=== PATIENT | male | born 1955 | race Caucasian/White ===

== ENCOUNTER 2021-09-30 15:44 | Observation (INO) | payer OTHER, SELFPAY ==
[2021-09-30] VITALS (73 sets, daily range): BP systolic 61–134; BP diastolic 35–86; PULSE 91–139; RESP 14–28; TEMP 31–37.7; O2SAT 74–100
--- NOTE | 2021-09-30 | PATH_ITS ---
[facility] Accession Number: [id number] No. of containers..01 Tissue . 01 Material submitted: . finger - RIGHT INDEX FINGER . 01 Diagnosis: Right Index Finger, Amputation: Skin and subcutaneous tissue with ulcer, necrosis, mixed inflammation, and bacterial organisms. Underlying bone with necrosis, marrow fibrosis, neutrophilic inflammation, and bacterial organisms, consistent with osteomyelitis. Necrosis, mixed inflammation, and bacterial organisms are present at the sampled skin and subcutaneous tissue margin. Marrow neutrophilic inflammation is present at the en face bone articular margin. No evidence of malignancy identified in sections examined. MRV 10/05/2021 1502 Local . 01 Electronically signed: . Geoffrey Pate MD, Dermatopathologist NPI- [id number] . 01 Gross description: . The specimen is received in formalin, labeled with the patient's name, and right index finger is an amputated finger, which measures 8.0 x 2.0 x 2.0 cm. The skin is gifford-white and is marked by an ulcer present proximal to the nail bed measuring 1.7 x 1.0 cm. There is an area of black discoloration present adjacent to the ulcer, which measures 1.0 x 0.5 cm. There is denuded skin and possible ulcer present underneath the nail bed on the dorsal aspect of the finger, and that measures 1.7 x 1.4 cm. Focally, the skin appears slightly discolored in other areas. The first described ulcer and the black discoloration is present 2.5 cm from the closest skin and underlying soft tissue resection margin, and 6.0 cm from the bone resection margin. The second described ulcer is present 2.5 cm from the skin and soft tissue margin on the dorsal aspect and 6.5 cm from articular bone margin. Also present is discoloration involving the skin and soft tissue resection margin on the ventral aspect and spreading over an area of 3.5 x 1.0 cm. The skin here appears dark, dusky. The exposed soft tissue overlying the bone is red-brown and dark. The articular surface of the bone resection margin is gifford-white and smooth. Sectioning through the first ulcer reveals softened underlying possible bone/cartilage. The tissue appears necrotic. The underlying bone is completely softened. Sections are submitted following decalcification of the bone. . A1 - Articular surface, en face section of the bone, inked green. A2 - Discolored and dusky skin shave resection margin on the ventral aspect. A3 - Viable appearing skin and soft tissue resection margin, shave section from the dorsal aspect. A4-A5 - Skin underlying soft tissue and underlying softened bone at the area of the first described ulcer and adjacent black discoloration cross-sections. A6 - Cross-section showing the second ulcer on the dorsal aspect underneath the nail bed. . The bone sections have been submitted following decalcification. ([id number] ) /MRV 10/04/2021 122 Local . 01 Pathologist provided ICD-10: M86.241 . 01 CPT . 660525, [id number] Specimen Comment: A courtesy copy of this report has been sent to [facility] Performed at: 01 [facility] [address] [place] [address], [place], [place] [id number] MD Hemal Blanchard MD Phone: [phone]
--- NOTE | 2021-09-30 15:55 | DI.RAD.S_ITS ---
PROCEDURE: XR CHEST 1V INDICATIONS: found on ground, hypothermia, infected hand TECHNIQUE: One view of the chest was acquired. COMPARISON: None. FINDINGS: Surgical changes and devices: None. Lungs and pleura: Lungs are clear. No pleural effusions or pneumothorax. Mediastinum: Mediastinal contours appear normal. Heart size is normal. Bones and chest wall: No suspicious bony lesions. Overlying soft tissues appear unremarkable. IMPRESSION: No evidence acute pulmonary process. Dictated by: Fred Gill M.D. on 09/30/2021 at 16:08 Approved by: Fred Gill M.D. on 09/30/2021 at 16:09
--- NOTE | 2021-09-30 15:55 | DI.RAD.S_ITS ---
PROCEDURE: XR HAND RT MIN 3V INDICATIONS: infected hand TECHNIQUE: 3 views of the hand(s) acquired. COMPARISON: None. FINDINGS: Bones: Fusion hardware related to fusion of the 3rd metacarpal to the distal radius. No evidence of hardware failure or loosening. No fractures or dislocations. Carpal bones are normally aligned. No suspicious bony lesions. Soft tissues: No suspicious soft tissue calcifications. Extensive soft tissue swelling in the hand and extensive soft tissue gas. IMPRESSION: 1. There is definite concern for possible development of a compartment syndrome secondary to necrotizing fasciitis. There is clear diffuse edema and extensive soft tissue gas. Comment: Findings were discussed with Dr. Caballero on 09/30/2021 at 1607 hours [place] Standard Time. Dictated by: Fred Gill M.D. on 09/30/2021 at 16:05 Approved by: Fred Gill M.D. on 09/30/2021 at 16:08
--- NOTE | 2021-09-30 15:55 | ED.SEPSIS ---
HPI - Sepsis General Chief Complaint: Altered Mental Status Mode of arrival: EMS Source: patient and EMS Limitations: altered mental status Evaluation Narrative: This is a 66-year-old male who is brought as by EMS for being found down on the ground for possibly 2 days. He lives at home in the basement his mother went to check on him she lives upstairs she has not seen for 2 days. He was on the ground. He was cold and has what appears to be an infected hand. Patient was alert, hypotensive and hypothermic for EMS. Glucose read high in the field. Patient has a history of diabetes, COPD no other known medical issues. Patient has reported history of neck fashion her his right upper extremity with multiple healed incisions. Patient is alert but has some mild confusion he states he was in his bed. He complains of pain in his left shoulder were an IO was placed by EMS. He does not complain of pain elsewhere but states hand is infected. Patient denies other surgeries. He notes he has hospital but has confusion about other details. Patient denies any headache, no neck pain, no chest pain or shortness of breath. He denies any nausea or vomiting. He denies any issues with bowel movements or urination. He does note his hand is infected and does appear to be infected. He denies any allergies to medications. He denies tobacco, alcohol or illicit. Review of Systems Review of Systems ROS Unobtainable: Unobtainable due to mental status/LOC Exam Narrative Exam Narrative: GEN: Disheveled, ill-appearing male, alert and oriented does self, patient appears to be in moderate distress. Patient is cold to the touch. Bear Hugger placed in the emergency department. HEENT: Atraumatic, pupils are equal round reactive to light, extraocular movements are intact, nares are clear, TMs are clear with no fluid, there is no conjunctival pallor. Throat is clear without any exudates, erythema, tonsillar enlargement or uvular deviation, normal range of motion at neck. Dry mucous membranes. Nontender and C-spine. HEART: Tachycardic irregular rate and rhythm without murmur, clicks, rubs. Pulses are equal in lower extremities. Positive radial pulse some left upper extremity. Right upper extremity patient has palpable radial pulse but has significant changes the hand see below. LUNGS:Lungs clear to auscultation, no wheezes, rales, crackles, chest moves symmetrically, no tachypnea accessory muscle use. ABD:bowel sounds normal, nondistended, soft, non-tender, no guarding, rebound, rigidity, no masses noted, no hepatosplenomegaly :No CVA tenderness, normal male genitalia. MSCL: Non-tender, patient has an IO in the left shoulder which appears to be infusing appropriately with no swelling surrounding. Patient has full range of motion of left upper extremity and bilateral lower extremities. Patient has movement right upper extremity at the elbow, he can flex and extend his fingers but has significant swelling of the hand with ulceration over the thumb and fingers, significant deformity swelling of the and all 5 fingers but in particularly the 1st and 2nd finger with necrotic changes of the 2nd finger that are circumferential. Patient does have touch to light sensation over the thumb and 3rd finger. Unable to assess cap refill in the 2nd finger. There is a foul odor. With erythema over the dorsum of the hand tracking into the wrist. NEURO:CN 2-12 intact, sensation normal. Initial Vital Signs Initial Vital Signs: Vital Signs Temperature 87.8 F L 09/30/21 15:47 Pulse Rate 117 H 09/30/21 15:47 Respiratory Rate 28 H 09/30/21 15:47 Blood Pressure 72/47 L 09/30/21 15:47 Pulse Oximetry 95 09/30/21 15:47 Procedures Central Line Placement Right IJ: Time Out Performed: Yes Patient Placed on Monitor/Pulse Ox: Yes MD Prep: mask, gown and gloves Central Line Prep: Povidone-Iodine 1%, Chlorhexidine scrub and sterile drapes applied Local Anesthetic: lidocaine 1% Amount of anesthesia used (mL): 5 Ultrasound Used for Placement: Yes Central Line Lumen Inserted: triple Post Procedure: sutured in place (device secured.), good blood return, all ports aspirated, flushed, capped and sterile dressing applied Post Procedure X-Ray: tip of catheter in good position and no pneumothorax seen Patient Tolerated Procedure: Well Complications: none Scores GCS [place] coma scale eye opening: Spontaneous [place] coma scale verbal response: Confused [place] coma scale motor response: Obey commands [place] coma scale total score: 14 Course Orders Ordered: ED Orders 09/30/21 15:52 Urine Drug Screen, Rapid Stat 09/30/21 15:54 COVID19 -Nasal swab/Pre-Proc Stat Ictotest Urine Stat Urinalysis and Microscopic Stat Urine Culture Stat 09/30/21 15:55 XR chest 1V Stat XR hand RT min 3V Stat EKG-12 Lead Stat 09/30/21 15:57 CT cervical spine wo con Stat 09/30/21 16:00 Complete Blood Count AUTO DIFF Stat Comprehensive Metabolic Panel Stat ETOH [Ethanol (ETOH)] Stat Ketones (Beta-Hydroxybutyrate) Stat Lactate (Lactic Acid) Stat NT-proBNP (BNP-Adult 18+) Stat Partial Thromboplastin Time Stat Procalcitonin Stat Prothrombin Time INR Stat Troponin & CK Cardiac Panel Stat 09/30/21 16:05 CT head/brain wo con Stat 09/30/21 16:15 Blood Culture Stat 09/30/21 16:25 Arterial Blood Gas Stat 09/30/21 18:08 Chest [XR chest 1V] Stat 09/30/21 21:00 Basic Metabolic Panel Routine NOREPINEPHRINE BITARTRATE/D5W (Levophed) 4 mg in 250 mls @ 30 mls/hr IV TITRATE ARCHANA; Protocol Last Titration: 09/30/21 18:20 Dose: 6 mcg/min, 22.5 mls/hr Documented by: Admin: 09/30/21 17:20 Dose: 8 mcg/min, 30 mls/hr Documented by: ASHLYN INSULIN DRIP PREMIX (Myxredlin Drip Premix) 100 unit in 100 mls @ 6 mls/hr IV TITRATE ARCHANA; Protocol Last Titration: 09/30/21 20:14 Dose: 6 mls/hr, 6 mls/hr Documented by: POTASSIUM CHLORIDE IN WATER (Potassium Cl 10 Meq/100 Ml Rama) 10 meq in 100 mls @ 100 mls/hr IV Q1H ARCHANA Stop: 09/30/21 22:29 Last Titration: 09/30/21 20:14 Dose: Infused Documented by: Discontinued Medications Fentanyl (Fentanyl 100 Mcg/2 Ml Inj) 50 mcg IV NOW ONE Stop: 09/30/21 17:14 Last Admin: 09/30/21 17:20 Dose: 50 mcg Documented by: ASHLYN Lactated Ringer's (Lactated Ringers) 2,177.25 mls @ 725.75 mls/hr 30 ml/kg infuse over 3 hr (2177.25 ml) IV NOW ONE Stop: 09/30/21 18:56 Last Infusion: 09/30/21 18:28 Dose: 0 mls/hr Documented by: Admin: 09/30/21 16:06 Dose: 725.75 mls/hr Documented by: TRE Vancomycin HCl/Dextrose (Vancomycin) 2,000 mg in 400 mls @ 200 mls/hr IV NOW ONE Stop: 09/30/21 17:57 Last Admin: 09/30/21 16:30 Dose: 200 mls/hr Documented by: ASHLYN Piperacillin Sod/Tazobactam (Sod 4.5 gm/ Sodium Chloride) 100 mls @ 200 mls/hr IV NOW ONE Stop: 09/30/21 15:59 Last Infusion: 09/30/21 16:31 Dose: 0 mls/hr Documented by: Infusion: 09/30/21 16:30 Dose: 0 mls/hr Documented by: Admin: 09/30/21 16:11 Dose: 200 mls/hr Documented by: TRE INSULIN DRIP PREMIX (Myxredlin Drip Premix) 100 unit in 100 mls @ 6 mls/hr IV TITRATE ARCHANA; Protocol Last Admin: 09/30/21 19:24 Dose: Not Given Documented by: Lactated Ringer's (Lactated Ringers) 1,000 mls @ 1,000 mls/hr IV BOLUS ONE Stop: 09/30/21 19:53 Last Titration: 09/30/21 20:15 Dose: Infused Documented by: Morphine Sulfate (Morphine 4 Mg/Ml Inj) 4 mg IV NOW ONE Stop: 09/30/21 18:24 Last Admin: 09/30/21 18:30 Dose: 4 mg Documented by: ASHLYN Consultations Consultation #1: Dr. Reyna, orthopedic surgery. Unstable patient with neck fast. She is willing to take patient to OR but like a stalk to [address] as patients often need transfer. Consultation #2: Spoke with Dr. Márquez hand surgery at [facility]. Ask that the patient be taken to the OR 1st locally for source control, then recontact for transfer they think patient is appropriate for transfer but feel that he would be better stabilized by going to the OR 1st. We reviewed that patient appears to have necrotizing fasciitis of the right hand with gangrene of the 2nd digit, septic shock with hypotension, on pressors with hypothermia, DKA as well as acute kidney injury. Consultation #3: Dr. Reyna, orthopedic surgery. Will come in and take patient to the OR. Calling in the OR crew and ask us to talk to the hospitalist as patient may need some management post surgery while awaiting transfer. Dr. Reyna did see patient here in the department and obtained consent from patient and parents. Additional Consultation(s): Dr. Leon, hospitalist. Aware of patient reviewed that patient has neck fascia of his right hand hypothermia after being on the floor with septic shock with hypotension, DKA and acute kidney injury. Patient has received fluids, pressors, antibiotics as on insulin drip along with potassium replacement. Dr. Hatch, Anesthesia was in the department to evaluate patient. Vital Signs Vital signs: Vital Signs - 8 hr 09/30/21 15:47 09/30/21 15:49 09/30/21 15:56 Temperature 87.8 F L 88.3 F L Pulse Rate 117 H 118 H 113 H Respiratory Rate 28 H 26 H 28 H Blood Pressure 72/47 L 72/47 L Pulse Oximetry 95 94 99 09/30/21 16:00 09/30/21 16:06 09/30/21 16:11 Temperature 88.5 F L 88.7 F L 88.7 F L Pulse Rate 120 H 120 H 119 H Respiratory Rate 28 H 28 H 28 H Blood Pressure 71/44 L 71/54 L Pulse Oximetry 99 99 94 09/30/21 16:15 09/30/21 16:20 09/30/21 16:25 Temperature 88.7 F L 88.7 F L 88.7 F L Pulse Rate 117 H 123 H 110 H Respiratory Rate 28 H 27 H 26 H Blood Pressure 72/48 L 70/51 L 64/49 L Pulse Oximetry 99 99 100 09/30/21 16:30 09/30/21 16:35 09/30/21 16:40 Temperature 88.9 F L 88.9 F L 89.2 F L Pulse Rate 119 H 118 H 125 H Respiratory Rate 27 H 22 24 Blood Pressure 73/35 L 63/44 L Pulse Oximetry 97 97 98 09/30/21 16:45 09/30/21 16:50 09/30/21 16:52 Temperature 89.1 F L 89.2 F L 89.2 F L Pulse Rate 114 H 118 H 120 H Respiratory Rate 21 22 26 H Blood Pressure 69/53 L 66/45 L 61/46 L Pulse Oximetry 98 96 95 09/30/21 16:55 09/30/21 16:56 09/30/21 16:57 Temperature 89.2 F L 89.2 F L 89.4 F L Pulse Rate 118 H 120 H 117 H Respiratory Rate 20 23 22 Blood Pressure 70/51 L 84/52 L Pulse Oximetry 93 93 96 09/30/21 17:00 09/30/21 17:03 09/30/21 17:05 Temperature 89.6 F L 89.4 F L 89.6 F L Pulse Rate 116 H 121 H 117 H Respiratory Rate 21 25 H 22 Blood Pressure 74/51 L Pulse Oximetry 98 98 95 09/30/21 17:06 09/30/21 17:09 09/30/21 17:10 Temperature 89.6 F L 89.8 F L 90.1 F L Pulse Rate 118 H 118 H 115 H Respiratory Rate 21 22 22 Blood Pressure 71/51 L 69/52 L Pulse Oximetry 82 L 87 L 82 L 09/30/21 17:12 09/30/21 17:15 09/30/21 17:18 Temperature 89.8 F L 90.0 F L 90.1 F L Pulse Rate 118 H 113 H 114 H Respiratory Rate 26 H 20 21 Blood Pressure 72/52 L 73/55 L 87/52 L Pulse Oximetry 98 98 97 09/30/21 17:20 09/30/21 17:21 09/30/21 17:24 Temperature 90.3 F L 90.5 F L 90.3 F L Pulse Rate 120 H 123 H 122 H Respiratory Rate 18 22 24 Blood Pressure 78/53 L 73/51 L Pulse Oximetry 97 95 98 09/30/21 17:25 09/30/21 17:27 09/30/21 17:30 Temperature 90.7 F L 90.5 F L 90.7 F L Pulse Rate 122 H 120 H 121 H Respiratory Rate 14 22 21 Blood Pressure 90/67 119/73 Pulse Oximetry 98 97 99 09/30/21 17:33 09/30/21 17:35 09/30/21 17:36 Temperature 90.9 F L 91.0 F L 91.0 F L Pulse Rate 123 H 127 H 91 H Respiratory Rate 22 21 21 Blood Pressure 134/75 129/70 Pulse Oximetry 99 98 98 09/30/21 17:39 09/30/21 17:40 09/30/21 17:42 Temperature 91.2 F L 91.4 F L 91.6 F L Pulse Rate 130 H 125 H 133 H Respiratory Rate 21 21 21 Blood Pressure 123/73 126/86 Pulse Oximetry 98 98 99 09/30/21 17:45 09/30/21 17:48 09/30/21 17:50 Temperature 92.3 F L 92.1 F L 92.1 F L Pulse Rate 132 H 132 H 134 H Respiratory Rate 18 20 20 Blood Pressure 119/80 124/77 Pulse Oximetry 97 97 98 09/30/21 17:51 09/30/21 17:54 09/30/21 17:55 Temperature 92.3 F L 92.5 F L 92.5 F L Pulse Rate 123 H 130 H 129 H Respiratory Rate 19 17 21 Blood Pressure 124/76 130/77 Pulse Oximetry 98 89 L 89 L 09/30/21 17:57 09/30/21 18:00 09/30/21 18:05 Temperature 92.8 F L 92.8 F L 93.2 F L Pulse Rate 130 H 131 H 134 H Respiratory Rate 19 21 22 Blood Pressure 120/82 120/78 Pulse Oximetry 97 98 96 09/30/21 18:07 09/30/21 18:10 09/30/21 18:15 Temperature 93.4 F L 93.6 F L 93.9 F L Pulse Rate 132 H 131 H 128 H Respiratory Rate 23 21 20 Blood Pressure 124/68 132/67 Pulse Oximetry 74 L 97 98 09/30/21 18:20 09/30/21 18:25 09/30/21 18:30 Temperature 94.1 F L 94.5 F L 94.6 F L Pulse Rate 133 H 135 H 139 H Respiratory Rate 22 21 20 Blood Pressure 106/61 Pulse Oximetry 98 100 91 09/30/21 18:35 09/30/21 18:50 09/30/21 18:51 Temperature 95.0 F L Pulse Rate 134 H 99 H 98 H Respiratory Rate 23 21 20 Blood Pressure 85/54 L Pulse Oximetry 94 09/30/21 18:52 09/30/21 18:55 09/30/21 19:00 Temperature 95.7 F L 95.9 F L 96.3 F L Pulse Rate 98 H 98 H 99 H Respiratory Rate 19 21 22 Blood Pressure 89/56 L Pulse Oximetry 93 95 09/30/21 19:01 09/30/21 19:05 09/30/21 19:10 Temperature 96.3 F L 96.4 F L 96.6 F L Pulse Rate 100 H 98 H 97 H Respiratory Rate 21 21 20 Blood Pressure 79/51 L Pulse Oximetry 96 95 98 09/30/21 19:15 09/30/21 19:20 09/30/21 19:25 Temperature 96.8 F L 97.0 F L 97.2 F L Pulse Rate 97 H 97 H 98 H Respiratory Rate 20 21 22 Blood Pressure 94/64 Pulse Oximetry 98 98 96 Sepsis Guideline Criteria Treatment Initiated Antibiotics:: IV antimicrobials will be initiated as soon as possible after recognition of sepsis state and within one hour for both sepsis and septic shock. [facility] - Sepsis Lab Data Result diagrams: 09/30/21 16:00 09/30/21 16:00 Labs: Lab Results 09/30/21 09/30/21 09/30/21 Range/Units 15:52 15:54 15:54 WBC (4.5-11.0) X10^3/uL RBC (4.5-5.9) X10^6/uL Hgb (13.5-17.5) g/dL Hct (41-53) % MCV (80-100) fL MCH (26-34) PG MCHC (30-36) % RDW (11.6-14.8) % Plt Count (150-400) X10^3/uL Neut % (Auto) Lymph % (Auto) [place] % (Auto) Eos % (Auto) Baso % (Auto) Lymph # (Auto) [place] # (Auto) Baso # (Auto) Total Counted Seg Neutrophils % (38-70) % Band Neutrophils % (3-7) % Lymphocytes % (Manual) (25-45) % Monocytes % (Manual) (2-11) % Metamyelocytes % (-0) % Neutrophils # (Manual) (0085-7031) /uL RBC Morphology Anisocytosis Val[place] Cells PT (10.1-12.7) SECONDS INR (0.9-1.3) APTT (26.4-36.2) SECONDS ABG pH (7.35-7.45) ABG pCO2 (35-45) mmHg ABG pO2 (80-100) mmHg ABG HCO3 (22-26) mmol/L ABG Total CO2 (21-31) mmol/L ABG O2 Saturation (95-100) % ABG Base Excess (-2-2) mmol/L FiO2 Sodium (137-145) mmol/L Potassium (3.4-5.1) mmol/L Chloride (98-107) mmol/L Carbon Dioxide (22-32) mmol/L BUN (9-20) mg/dL Creatinine (0.66-1.25) mg/dL Estimated GFR (>60) mL/min BUN/Creatinine Ratio (6-22) Glucose (80-110) mg/dL Lactate (0.7-2.1) mmol/L Calcium (8.4-10.2) mg/dL Total Bilirubin (0.2-1.3) mg/dL AST (17-59) IU/L ALT (<50) IU/L Alkaline Phosphatase (38-126) U/L Total Creatine Kinase (55-170) U/L CK-MB (CK-2) (<2.37) ng/mL CK-MB (CK-2) Rel Index (1.5-5.0) % Troponin I (0.01-0.034) ng/mL NT-Pro-B Natriuret Pep (<125) pg/mL Total Protein (6.3-8.2) g/dL Albumin (3.5-5.0) g/dL Globulin (1.7-4.1) g/dL Albumin/Globulin Ratio (1.0-2.8) Procalcitonin (<0.5) ng/mL Urine Color Yellow Urine Appearance Clear Urine pH 6.0 (4.5-8.0) Ur Specific [place] 1.010 (1.000-1.035) Urine Protein 1+ H (Negative) Urine Glucose (UA) 3+ H (Negative) g/dL Urine Ketones 2+ H (NEGATIVE) Urine Occult Blood 2+ H (Negative) Urine Nitrate Negative (Negative) Urine Bilirubin 2+ H (NEGATIVE) Ur Bilirubin Confirm Positive H (Negative) Urine Urobilinogen 0.2 (0.2) E.U./dL Ur Leukocyte Esterase Negative (NEGATIVE) Urine RBC None seen (0-5/HPF) Urine WBC 5-10/hpf H (0-5/HPF) Amorphous Sediment 1+ Urine Bacteria Few (2-10) H (None) Ur Culture Indicated? Specimen cultured U Opiates 300ng/mL cut Negative (Negative) Ur Oxycodone Screen Positive H (Negative) Urine Methadone Screen Negative (Negative) Ur Barbiturates Screen Negative (Negative) U Tricyclic Antidepress Negative (Negative) Ur Phencyclidine Scrn Negative (Negative) Ur Amphetamines Screen Negative (Negative) U Methamphetamines Scrn Negative (Negative) Ur MDMA Scrn (Ecstasy) Negative (Negative) U Benzodiazepines Scrn Negative (Negative) Urine Cocaine Screen Negative (Negative) U Marijuana (THC) Screen Negative (Negative) Ethyl Alcohol ( - 10) mg/dL Ketones (<0.27) mmol/L SARS-CoV-2 (PCR) Negative (Negative) 09/30/21 09/30/21 09/30/21 Range/Units 16:00 16:00 16:00 WBC 21.8 H (4.5-11.0) X10^3/uL RBC 5.86 (4.5-5.9) X10^6/uL Hgb 17.6 H (13.5-17.5) g/dL Hct 54.8 H (41-53) % MCV 93.6 (80-100) fL MCH 30.1 (26-34) PG MCHC 32.2 (30-36) % RDW 14.4 (11.6-14.8) % Plt Count 319 (150-400) X10^3/uL Neut % (Auto) Not Reportable Lymph % (Auto) Not Reportable [place] % (Auto) Not Reportable Eos % (Auto) Not Reportable Baso % (Auto) Not Reportable Lymph # (Auto) Not Reportable [place] # (Auto) Not Reportable Baso # (Auto) Not Reportable Total Counted 100 Seg Neutrophils % 78.0 H (38-70) % Band Neutrophils % 11.0 H (3-7) % Lymphocytes % (Manual) 1.0 L (25-45) % Monocytes % (Manual) 8.0 (2-11) % Metamyelocytes % 2.0 H (-0) % Neutrophils # (Manual) 45878 H (3411-1431) /uL RBC Morphology See below Anisocytosis 1+ H Hancock Cells 2+ H PT 13.1 H (10.1-12.7) SECONDS INR 1.2 (0.9-1.3) APTT (26.4-36.2) SECONDS ABG pH (7.35-7.45) ABG pCO2 (35-45) mmHg ABG pO2 (80-100) mmHg ABG HCO3 (22-26) mmol/L ABG Total CO2 (21-31) mmol/L ABG O2 Saturation (95-100) % ABG Base Excess (-2-2) mmol/L FiO2 Sodium 130 L (137-145) mmol/L Potassium 3.4 (3.4-5.1) mmol/L Chloride 92 L (98-107) mmol/L Carbon Dioxide 11 L (22-32) mmol/L BUN 44 H (9-20) mg/dL Creatinine 2.18 H (0.66-1.25) mg/dL Estimated GFR 30.6 L (>60) mL/min BUN/Creatinine Ratio 20.2 (6-22) Glucose 607 H* (80-110) mg/dL Lactate (0.7-2.1) mmol/L Calcium 10.0 (8.4-10.2) mg/dL Total Bilirubin 0.9 (0.2-1.3) mg/dL AST 78 H (17-59) IU/L ALT 28 (<50) IU/L Alkaline Phosphatase 135 H (38-126) U/L Total Creatine Kinase 3262 H (55-170) U/L CK-MB (CK-2) 31.90 H (<2.37) ng/mL CK-MB (CK-2) Rel Index 1.0 L (1.5-5.0) % Troponin I 0.022 (0.01-0.034) ng/mL NT-Pro-B Natriuret Pep 3580 H (<125) pg/mL Total Protein 7.3 (6.3-8.2) g/dL Albumin 3.6 (3.5-5.0) g/dL Globulin 3.7 (1.7-4.1) g/dL Albumin/Globulin Ratio 1.0 (1.0-2.8) Procalcitonin 30.6 H (<0.5) ng/mL Urine Color Urine Appearance Urine pH (4.5-8.0) Ur Specific [place] (1.000-1.035) Urine Protein (Negative) Urine Glucose (UA) (Negative) g/dL Urine Ketones (NEGATIVE) Urine Occult Blood (Negative) Urine Nitrate (Negative) Urine Bilirubin (NEGATIVE) Ur Bilirubin Confirm (Negative) Urine Urobilinogen (0.2) E.U./dL Ur Leukocyte Esterase (NEGATIVE) Urine RBC (0-5/HPF) Urine WBC (0-5/HPF) Amorphous Sediment Urine Bacteria (None) Ur Culture Indicated? U Opiates 300ng/mL cut (Negative) Ur Oxycodone Screen (Negative) Urine Methadone Screen (Negative) Ur Barbiturates Screen (Negative) U Tricyclic Antidepress (Negative) Ur Phencyclidine Scrn (Negative) Ur Amphetamines Screen (Negative) U Methamphetamines Scrn (Negative) Ur MDMA Scrn (Ecstasy) (Negative) U Benzodiazepines Scrn (Negative) Urine Cocaine Screen (Negative) U Marijuana (THC) Screen (Negative) Ethyl Alcohol ( - 10) mg/dL Ketones (<0.27) mmol/L SARS-CoV-2 (PCR) (Negative) 09/30/21 09/30/21 09/30/21 Range/Units 16:00 16:00 16:00 WBC (4.5-11.0) X10^3/uL RBC (4.5-5.9) X10^6/uL Hgb (13.5-17.5) g/dL Hct (41-53) % MCV (80-100) fL MCH (26-34) PG MCHC (30-36) % RDW (11.6-14.8) % Plt Count (150-400) X10^3/uL Neut % (Auto) Lymph % (Auto) [place] % (Auto) Eos % (Auto) Baso % (Auto) Lymph # (Auto) [place] # (Auto) Baso # (Auto) Total Counted Seg Neutrophils % (38-70) % Band Neutrophils % (3-7) % Lymphocytes % (Manual) (25-45) % Monocytes % (Manual) (2-11) % Metamyelocytes % (-0) % Neutrophils # (Manual) (6884-4520) /uL RBC Morphology Anisocytosis Hancock Cells PT (10.1-12.7) SECONDS INR (0.9-1.3) APTT 37 H (26.4-36.2) SECONDS ABG pH (7.35-7.45) ABG pCO2 (35-45) mmHg ABG pO2 (80-100) mmHg ABG HCO3 (22-26) mmol/L ABG Total CO2 (21-31) mmol/L ABG O2 Saturation (95-100) % ABG Base Excess (-2-2) mmol/L FiO2 Sodium (137-145) mmol/L Potassium (3.4-5.1) mmol/L Chloride (98-107) mmol/L Carbon Dioxide (22-32) mmol/L BUN (9-20) mg/dL Creatinine (0.66-1.25) mg/dL Estimated GFR (>60) mL/min BUN/Creatinine Ratio (6-22) Glucose (80-110) mg/dL Lactate 4.0 H (0.7-2.1) mmol/L Calcium (8.4-10.2) mg/dL Total Bilirubin (0.2-1.3) mg/dL AST (17-59) IU/L ALT (<50) IU/L Alkaline Phosphatase (38-126) U/L Total Creatine Kinase (55-170) U/L CK-MB (CK-2) (<2.37) ng/mL CK-MB (CK-2) Rel Index (1.5-5.0) % Troponin I (0.01-0.034) ng/mL NT-Pro-B Natriuret Pep (<125) pg/mL Total Protein (6.3-8.2) g/dL Albumin (3.5-5.0) g/dL Globulin (1.7-4.1) g/dL Albumin/Globulin Ratio (1.0-2.8) Procalcitonin (<0.5) ng/mL Urine Color Urine Appearance Urine pH (4.5-8.0) Ur Specific [place] (1.000-1.035) Urine Protein (Negative) Urine Glucose (UA) (Negative) g/dL Urine Ketones (NEGATIVE) Urine Occult Blood (Negative) Urine Nitrate (Negative) Urine Bilirubin (NEGATIVE) Ur Bilirubin Confirm (Negative) Urine Urobilinogen (0.2) E.U./dL Ur Leukocyte Esterase (NEGATIVE) Urine RBC (0-5/HPF) Urine WBC (0-5/HPF) Amorphous Sediment Urine Bacteria (None) Ur Culture Indicated? U Opiates 300ng/mL cut (Negative) Ur Oxycodone Screen (Negative) Urine Methadone Screen (Negative) Ur Barbiturates Screen (Negative) U Tricyclic Antidepress (Negative) Ur Phencyclidine Scrn (Negative) Ur Amphetamines Screen (Negative) U Methamphetamines Scrn (Negative) Ur MDMA Scrn (Ecstasy) (Negative) U Benzodiazepines Scrn (Negative) Urine Cocaine Screen (Negative) U Marijuana (THC) Screen (Negative) Ethyl Alcohol ( - 10) mg/dL Ketones 8.59 H (<0.27) mmol/L SARS-CoV-2 (PCR) (Negative) 09/30/21 09/30/21 09/30/21 Range/Units 16:00 16:20 16:25 WBC (4.5-11.0) X10^3/uL RBC (4.5-5.9) X10^6/uL Hgb (13.5-17.5) g/dL Hct (41-53) % MCV (80-100) fL MCH (26-34) PG MCHC (30-36) % RDW (11.6-14.8) % Plt Count (150-400) X10^3/uL Neut % (Auto) Lymph % (Auto) [place] % (Auto) Eos % (Auto) Baso % (Auto) Lymph # (Auto) [place] # (Auto) Baso # (Auto) Total Counted Seg Neutrophils % (38-70) % Band Neutrophils % (3-7) % Lymphocytes % (Manual) (25-45) % Monocytes % (Manual) (2-11) % Metamyelocytes % (-0) % Neutrophils # (Manual) (7454-8502) /uL RBC Morphology Anisocytosis Hancock Cells PT (10.1-12.7) SECONDS INR (0.9-1.3) APTT (26.4-36.2) SECONDS ABG pH 7.13 L* (7.35-7.45) ABG pCO2 28.9 L (35-45) mmHg ABG pO2 116 H (80-100) mmHg ABG HCO3 10 L (22-26) mmol/L ABG Total CO2 10 L (21-31) mmol/L ABG O2 Saturation 97 (95-100) % ABG Base Excess -20.0 L (-2-2) mmol/L FiO2 24 Sodium (137-145) mmol/L Potassium (3.4-5.1) mmol/L Chloride (98-107) mmol/L Carbon Dioxide (22-32) mmol/L BUN (9-20) mg/dL Creatinine (0.66-1.25) mg/dL Estimated GFR (>60) mL/min BUN/Creatinine Ratio (6-22) Glucose (80-110) mg/dL Lactate 2.8 H (0.7-2.1) mmol/L Calcium (8.4-10.2) mg/dL Total Bilirubin (0.2-1.3) mg/dL AST (17-59) IU/L ALT (<50) IU/L Alkaline Phosphatase (38-126) U/L Total Creatine Kinase (55-170) U/L CK-MB (CK-2) (<2.37) ng/mL CK-MB (CK-2) Rel Index (1.5-5.0) % Troponin I (0.01-0.034) ng/mL NT-Pro-B Natriuret Pep (<125) pg/mL Total Protein (6.3-8.2) g/dL Albumin (3.5-5.0) g/dL Globulin (1.7-4.1) g/dL Albumin/Globulin Ratio (1.0-2.8) Procalcitonin (<0.5) ng/mL Urine Color Urine Appearance Urine pH (4.5-8.0) Ur Specific [place] (1.000-1.035) Urine Protein (Negative) Urine Glucose (UA) (Negative) g/dL Urine Ketones (NEGATIVE) Urine Occult Blood (Negative) Urine Nitrate (Negative) Urine Bilirubin (NEGATIVE) Ur Bilirubin Confirm (Negative) Urine Urobilinogen (0.2) E.U./dL Ur Leukocyte Esterase (NEGATIVE) Urine RBC (0-5/HPF) Urine WBC (0-5/HPF) Amorphous Sediment Urine Bacteria (None) Ur Culture Indicated? U Opiates 300ng/mL cut (Negative) Ur Oxycodone Screen (Negative) Urine Methadone Screen (Negative) Ur Barbiturates Screen (Negative) U Tricyclic Antidepress (Negative) Ur Phencyclidine Scrn (Negative) Ur Amphetamines Screen (Negative) U Methamphetamines Scrn (Negative) Ur MDMA Scrn (Ecstasy) (Negative) U Benzodiazepines Scrn (Negative) Urine Cocaine Screen (Negative) U Marijuana (THC) Screen (Negative) Ethyl Alcohol < 10 ( - 10) mg/dL Ketones (<0.27) mmol/L SARS-CoV-2 (PCR) (Negative) 09/30/21 Range/Units 19:35 WBC (4.5-11.0) X10^3/uL RBC (4.5-5.9) X10^6/uL Hgb (13.5-17.5) g/dL Hct (41-53) % MCV (80-100) fL MCH (26-34) PG MCHC (30-36) % RDW (11.6-14.8) % Plt Count (150-400) X10^3/uL Neut % (Auto) Lymph % (Auto) [place] % (Auto) Eos % (Auto) Baso % (Auto) Lymph # (Auto) [place] # (Auto) Baso # (Auto) Total Counted Seg Neutrophils % (38-70) % Band Neutrophils % (3-7) % Lymphocytes % (Manual) (25-45) % Monocytes % (Manual) (2-11) % Metamyelocytes % (-0) % Neutrophils # (Manual) (0593-1486) /uL RBC Morphology Anisocytosis [place] Cells PT (10.1-12.7) SECONDS INR (0.9-1.3) APTT (26.4-36.2) SECONDS ABG pH (7.35-7.45) ABG pCO2 (35-45) mmHg ABG pO2 (80-100) mmHg ABG HCO3 (22-26) mmol/L ABG Total CO2 (21-31) mmol/L ABG O2 Saturation (95-100) % ABG Base Excess (-2-2) mmol/L FiO2 Sodium Cancelled (137-145) mmol/L Potassium Cancelled (3.4-5.1) mmol/L Chloride Cancelled (98-107) mmol/L Carbon Dioxide Cancelled (22-32) mmol/L BUN Cancelled (9-20) mg/dL Creatinine Cancelled (0.66-1.25) mg/dL Estimated GFR Cancelled (>60) mL/min BUN/Creatinine Ratio Cancelled (6-22) Glucose Cancelled (80-110) mg/dL Lactate (0.7-2.1) mmol/L Calcium Cancelled (8.4-10.2) mg/dL Total Bilirubin (0.2-1.3) mg/dL AST (17-59) IU/L ALT (<50) IU/L Alkaline Phosphatase (38-126) U/L Total Creatine Kinase (55-170) U/L CK-MB (CK-2) (<2.37) ng/mL CK-MB (CK-2) Rel Index (1.5-5.0) % Troponin I (0.01-0.034) ng/mL NT-Pro-B Natriuret Pep (<125) pg/mL Total Protein (6.3-8.2) g/dL Albumin (3.5-5.0) g/dL Globulin (1.7-4.1) g/dL Albumin/Globulin Ratio (1.0-2.8) Procalcitonin (<0.5) ng/mL Urine Color Urine Appearance Urine pH (4.5-8.0) Ur Specific [place] (1.000-1.035) Urine Protein (Negative) Urine Glucose (UA) (Negative) g/dL Urine Ketones (NEGATIVE) Urine Occult Blood (Negative) Urine Nitrate (Negative) Urine Bilirubin (NEGATIVE) Ur Bilirubin Confirm (Negative) Urine Urobilinogen (0.2) E.U./dL Ur Leukocyte Esterase (NEGATIVE) Urine RBC (0-5/HPF) Urine WBC (0-5/HPF) Amorphous Sediment Urine Bacteria (None) Ur Culture Indicated? U Opiates 300ng/mL cut (Negative) Ur Oxycodone Screen (Negative) Urine Methadone Screen (Negative) Ur Barbiturates Screen (Negative) U Tricyclic Antidepress (Negative) Ur Phencyclidine Scrn (Negative) Ur Amphetamines Screen (Negative) U Methamphetamines Scrn (Negative) Ur MDMA Scrn (Ecstasy) (Negative) U Benzodiazepines Scrn (Negative) Urine Cocaine Screen (Negative) U Marijuana (THC) Screen (Negative) Ethyl Alcohol ( - 10) mg/dL Ketones (<0.27) mmol/L SARS-CoV-2 (PCR) (Negative) Point of Care Testing Glucose POC [address] scan - head: Radiologist's Impression: Launch?Image [address] [address] [address] Scan Report Signed Patient: Anil Bergeron MR#: [id number] : 1955 Acct:[id number] Age/Sex: 66 / M Date of Service: 09/30/21 Loc: ED Accession Number: [id number] ?? Procedure: CT head/brain wo con Ordering Provider: Kathy Caballero D.O. PROCEDURE:? CT HEAD/BRAIN WO CON ? INDICATIONS:? found on ground, hypothermia, infected hand ? TECHNIQUE:? Noncontrast 4.5 mm thick angled axial sections acquired from the foramen magnum to the vertex, with coronal and sagittal reformats.? For radiation dose reduction, the following was used:? automated exposure control, adjustment of mA and/or kV according to patient size.? ? COMPARISON:? None. ? FINDINGS:? Image quality:? Excellent.? ? CSF spaces:? Basal cisterns are patent.? No extra-axial fluid collections.? The ventricles are symmetric in size and shape.? ? Brain:? No intracranial bleeds or masses.? There is cerebral volume loss for age, with resultant ventricular and sulcal prominence.? There are periventricular and deep white matter chronic small vessel ischemic changes.? There is intracranial internal carotid artery atherosclerosis.? ? Skull and face:? Calvarium and visualized facial bones appear intact, without suspicious lesions.? ? Sinuses:? Visualized sinuses and mastoids are clear.? ? IMPRESSION:? No acute intracranial disease process. ? ? Dictated by: Alyssa Britt MD, PhD on 09/30/2021 at 19:10 ? ? Approved by: Alyssa Britt MD, PhD on 09/30/2021 at 19:11?? CT - cervical spine: Radiologist's Impression: [address] [address] [address] Scan Report Signed Patient: Anil Bergeron MR#: [id number] : 1955 Acct:[id number] Age/Sex: 66 / M Date of Service: 09/30/21 Loc: ED Accession Number: [id number] ?? Procedure: CT cervical spine wo con Ordering Provider: Kathy Caballero D.O. PROCEDURE:? CT CERVICAL SPINE WO CON ? INDICATIONS:? found on ground ? TECHNIQUE:? Noncontrast 3 mm thick sections acquired from the skull base to the T4 level.? Sagittal and coronal reformats were then constructed.? For radiation dose reduction, the following was used:? automated exposure control, adjustment of mA and/or kV according to patient size.? ? COMPARISON:? None. ? FINDINGS:? Image quality:? Excellent.? ? Bones:? No cervical spine fractures or dislocations.? Chronic appearing posterior right 3rd and 4th rib fractures. ? Soft tissues:? Prevertebral soft tissues are normal in thickness.? No paravertebral hematomas.? No apical pneumothoraces.? Right IJ central venous catheter.? ? ? IMPRESSION:? No fracture. No osseous lesion. If symptoms and/or clinical suspicion for pathology persists, further assessment with repeat radiographs (7-10 days) or advanced imaging (e.g. CT, MRI or bone scan) should be considered. ? ? Dictated by: Alyssa Britt MD, PhD on 09/30/2021 at 19:11 ? ? Approved by: Alyssa Britt MD, PhD on 09/30/2021 at 19:15?? Extremity x-ray #1: Radiologist's Impression: [place] [address] XRay Report Signed Patient: Anil Bergeron MR#: [id number] : 1955 Acct:[id number] Age/Sex: 66 / M Date of Service: 09/30/21 Loc: ED Accession Number: [id number] ?? Procedure: XR hand RT min 3V Ordering Provider: Kathy Caballero D.O. PROCEDURE:? XR HAND RT MIN 3V ? INDICATIONS:? infected hand ? TECHNIQUE:? 3 views of the hand(s) acquired.? ? COMPARISON:? None. ? FINDINGS:? ? Bones:? Fusion hardware related to fusion of the 3rd metacarpal to the distal radius.? No evidence of hardware failure or loosening.? No fractures or dislocations.? Carpal bones are normally aligned.? No suspicious bony lesions.? ? Soft tissues:? No suspicious soft tissue calcifications.? Extensive soft tissue swelling in the hand and extensive soft tissue gas. ? ? IMPRESSION:? ? 1. There is definite concern for possible development of a compartment syndrome secondary to necrotizing fasciitis.? There is clear diffuse edema and extensive soft tissue gas. ? ? Comment: Findings were discussed with Dr. Caballero on? 09/30/2021 at 1607 hours [place] Standard Time. ? ? Dictated by: Fred Gill M.D. on 09/30/2021 at 16:05 ? ? Approved by: Fred Gill M.D. on 09/30/2021 at 16:08?? Chest x-ray: Radiologist's Impression: [address] [id number] ReportSigned Patient: Anil Bergeron RMR#: [id number]: 1955cct:[id number]/Sex: 66 / MDate of Service: 09/30/21Loc: EDAccession Number: [id number]? ? Procedure: XR chest 1V Ordering Provider: Kathy Caballero D.O. PROCEDURE:? XR CHEST 1V ? INDICATIONS:? central line placement ? TECHNIQUE:? One view of the chest was acquired.? ? COMPARISON:? [facility], CR, XR CHEST 1V, 09/30/2021, 16:12. ? FINDINGS:? ? Surgical changes and devices:? Central venous catheter projects to the mid SVC via a right IJ approach. ? Lungs and pleura:? Lungs are clear.? No pleural effusions or pneumothorax.? ? Mediastinum:? Mediastinal contours appear normal.? Heart size is normal.? ? Bones and chest wall:? No suspicious bony lesions.? Overlying soft tissues appear unremarkable.? ? IMPRESSION:? Tip of central venous catheter projects over the mid SVC. ? ? Dictated by: Alyssa Britt MD, PhD on 09/30/2021 at 18:25? ?? Approved by: Alyssa Britt MD, PhD on 09/30/2021 at 18:26?? ECG Data Attestation: I personally reviewed and interpreted this ECG as follows: Prior ECG tracings: not available for review Interpretation: AFib rate of 108 QRS of 160 QTC of 584. Right bundle-branch block. MDM Narrative Medical decision making narrative: This is a 66-year-old female who is brought in with altered mental status found on the floor of his home by his mother after 1-2 days likely being on the floor. He is hypothermic, he is hypotensive and tachycardic. Suspect in addition to his hypotension being secondary to his hypothermia that he is likely in septic shock with what appears to be neck fashion his right hand with gangrene of the 2nd digit and significant cellulitis and swelling of the hand tracking into the arm, patient is also in DKA, with a pH of 7.1, glucose of 607, positive ketones and anion gap of 27. ABG shows a metabolic acidosis. Patient has air on his hand x-ray which is quite concerning and needs emergent OR. Patient was started on 30 cc/kilos bolus which he received including antibiotics with vanco and Zosyn and patient received additional L of fluids with nor epi initiated for hypotension that was persistent despite adequate fluid resuscitation. Patient's had central line placed and chest x-ray shows good placement. Patient has negative head CT and C-spine which was obtained secondary to his altered mental status. Patient also has acute kidney injury but has had appropriate urine output in the department with a 50-75 cc/hour and initial urine output of 500 cc with initial Nash catheter placement. Patient did have improvement of his blood pressure with norepinephrine and improvement of his temperature he was 97 F up from 87 F rectally prior to transfer to OR. We did attempt to wean this off in his blood pressure dropped again. Heart rate did improve somewhat into the 90s. Orthopedic surgery and anesthesia saw patient at bedside with his parents. Patient continues to be confused so they have been giving consent. Also spoke with the hospitalist services patient is going to be transferred or has the cold to be transferred but may need some management in the interim. Critical Care Time Critical Care Time Critical Care Time: Yes Total Critical Care Time: 75 Attestation: The high probability of a clinically significant, sudden or life threatening deterioration of the [cardiac, pulm, neurologic] system(s) required my full and direct attention, intervention and personal management. The aggregate critical care time was [75] minutes. This time is in addition to time spent performing reported procedures but includes the following: [x] Data Review and interpretation [x] Patient assessment and monitoring of vital signs [x] Documentation [x] Medication orders and management Discharge Plan Departure Patient Disposition: Admitted to Surgery Clinical Impression: Necrotizing fasciitis of hand, DKA (diabetic ketoacidosis), VINCENT (acute kidney injury), Hypothermia, Septic shock Admit Date/Time: 09/30/21 20:28 Admit Provider: Cheli Reyna
--- NOTE | 2021-09-30 15:57 | DI.CT.S_ITS ---
PROCEDURE: CT CERVICAL SPINE WO CON INDICATIONS: found on ground TECHNIQUE: Noncontrast 3 mm thick sections acquired from the skull base to the T4 level. Sagittal and coronal reformats were then constructed. For radiation dose reduction, the following was used: automated exposure control, adjustment of mA and/or kV according to patient size. COMPARISON: None. FINDINGS: Image quality: Excellent. Bones: No cervical spine fractures or dislocations. Chronic appearing posterior right 3rd and 4th rib fractures. Soft tissues: Prevertebral soft tissues are normal in thickness. No paravertebral hematomas. No apical pneumothoraces. Right IJ central venous catheter. IMPRESSION: No fracture. No osseous lesion. If symptoms and/or clinical suspicion for pathology persists, further assessment with repeat radiographs (7-10 days) or advanced imaging (e.g. CT, MRI or bone scan) should be considered. Dictated by: Alyssa Britt MD, PhD on 09/30/2021 at 19:11 Approved by: Alyssa Britt MD, PhD on 09/30/2021 at 19:15
--- NOTE | 2021-09-30 16:05 | DI.CT.S_ITS ---
PROCEDURE: CT HEAD/BRAIN WO CON INDICATIONS: found on ground, hypothermia, infected hand TECHNIQUE: Noncontrast 4.5 mm thick angled axial sections acquired from the foramen magnum to the vertex, with coronal and sagittal reformats. For radiation dose reduction, the following was used: automated exposure control, adjustment of mA and/or kV according to patient size. COMPARISON: None. FINDINGS: Image quality: Excellent. CSF spaces: Basal cisterns are patent. No extra-axial fluid collections. The ventricles are symmetric in size and shape. Brain: No intracranial bleeds or masses. There is cerebral volume loss for age, with resultant ventricular and sulcal prominence. There are periventricular and deep white matter chronic small vessel ischemic changes. There is intracranial internal carotid artery atherosclerosis. Skull and face: Calvarium and visualized facial bones appear intact, without suspicious lesions. Sinuses: Visualized sinuses and mastoids are clear. IMPRESSION: No acute intracranial disease process. Dictated by: Alyssa Britt MD, PhD on 09/30/2021 at 19:10 Approved by: Alyssa Britt MD, PhD on 09/30/2021 at 19:11
[2021-09-30] MEDS: LACTATED RINGERS 2,177.25 ML 725.75 ML IV (16:06)
[2021-09-30] MEDS: PIPERACILLIN/TAZO 4.5 GM in SODIUM CHLORIDE 0.9% 100 ML 200 ML IV (16:11)
[2021-09-30 16:18] LABS: Appearance Urine UA CLEAR; Bilirubin Urine UA 2+ (NEGATIVE); Color Urine UA YELLOW; Glucose Urine UA 3+ g/dL (Negative); Ketones Urine UA 2+ (NEGATIVE); Leukocyte Esterase Urine UA NEGATIVE (NEGATIVE); Nitrite Urine UA NEGATIVE (Negative); Occult Blood Urine UA 2+ (Negative); Protein Urine UA 1+ (Negative); Urobilinogen Urine UA 0.2 E.U./dL (0.2)
[2021-09-30 16:23] LABS: Hematocrit 54.8 % (41-53); Hemoglobin 17.6 g/dL (13.5-17.5); Mean Corpuscular HGB Conc 32.2 % (30-36); Mean Corpuscular Hemoglobin 30.1 PG (26-34); Mean Corpuscular Volume 93.6 fL (80-100); Platelet Count 319 X10^3/uL (150-400); Red Blood Cell Count 5.86 X10^6/uL (4.5-5.9); Red Cell Distribution Width 14.4 % (11.6-14.8); White Blood Cell Count 21.8 X10^3/uL (4.5-11.0)
[2021-09-30 16:25] LABS: Add Manual Diff / Slide Review YES; INR 1.2 (0.9-1.3); Prothrombin Time 13.1 SECONDS (10.1-12.7)
[2021-09-30] MEDS: VANCOMYCIN 2,000 MG/400 ML PIGGYBACK 200 MG IV (16:30)
[2021-09-30 16:31] LABS: COVID19 -Nasal RAPID Negative (Negative)
[2021-09-30 16:32] LABS: Amorphous Sediment Urine 1+; Bacteria Urine Few (2-10); Culture Indicated Urine Specimen Cultured; Ictotest Urine Positive (Negative); RBC Urine None Seen (0-5/HPF); WBC Urine 5-10/HPF (0-5/HPF)
[2021-09-30 16:33] LABS: PTT Partial Thromboplastin Tim 37 SECONDS (26.4-36.2)
[2021-09-30 16:35] LABS: Ethanol (ETOH) < 10 mg/dL
[2021-09-30 16:36] LABS: Alanine Aminotransferase 28 IU/L (<50); Albumin 3.6 g/dL (3.5-5.0); Alkaline Phosphatase 135 U/L (38-126); Aspartate Aminotransferase 78 IU/L (17-59); BUN Creatinine Ratio 20.2 (6-22); Bilirubin Total 0.9 mg/dL (0.2-1.3); Blood Urea Nitrogen 44 mg/dL (9-20); Carbon Dioxide 11 mmol/L (22-32); Chloride 92 mmol/L (98-107); Estimated Glomerular Filt Rate 30.6 mL/min (>60); Globulin 3.7 g/dL (1.7-4.1); Potassium 3.4 mmol/L (3.4-5.1); Sodium 130 mmol/L (137-145); Total Protein 7.3 g/dL (6.3-8.2)
[2021-09-30 16:38] LABS: Ketones (Beta-Hydroxybutyrate) 8.59 mmol/L (<0.27)
[2021-09-30 16:47] LABS: NT-proBNP (BNP-Adult 18+) 3580 pg/mL (<125)
[2021-09-30 16:53] LABS: Creatine Kinase 3262 U/L (55-170)
[2021-09-30 16:54] LABS: HEMOLYSIS 20 (0-50)
[2021-09-30 16:55] LABS: Glucose 607 mg/dL (80-110); Procalcitonin 30.6 ng/mL (<0.5)
[2021-09-30 17:02] LABS: Neutrophils Absolute Manual 19402 /uL (3000-5900); Total Cells Counted 100
[2021-09-30 17:03] LABS: Anisocytosis 1+; Burr Cells 2+
--- NOTE | 2021-09-30 17:04 | PC.NURSE ---
[address]30 mom at speaking with dr ness. 1645 father and mother both at bs.
[2021-09-30 17:05] LABS: Troponin I 0.022 ng/mL (0.01-0.034)
[2021-09-30] MEDS: NOREPINEPHRINE BITARTRATE/D5W 4 MG/250 ML PLAST..BAG 30 MG IV (17:20)
[2021-09-30] MEDS: fentaNYL 100 MCG/2 ML INJ 50 MCG IV (17:20)
--- NOTE | 2021-09-30 17:30 | PC.NURSE ---
left shoulder IO blue needle discontinued, not in place, removed tip intact.
--- NOTE | 2021-09-30 17:34 | PC.NURSE ---
Called [facility] at 1718 and placed patient on transfer list.
[2021-09-30 17:42] LABS: UR Morphine/Opiate cutoff 300 Negative (Negative); Ur Creatinine Normal (Normal); Ur Specific Gravity Normal (Normal); Urine Amphetamines Negative (Negative); Urine Cocaine Negative (Negative); Urine Methamphetamines Negative (Negative); Urine Phencyclidine Negative (Negative); Urine Tetrahydrocannabinol Negative (Negative); Urine pH Normal (Normal)
[2021-09-30 17:43] LABS: Urine Barbiturates Negative (Negative); Urine Benzodiazepines Negative (Negative); Urine MDMA Negative (Negative); Urine Methadone Negative (Negative); Urine Oxycodone Positive (Negative); Urine Tricyclic Antidepressant Negative (Negative)
[2021-09-30 18:04] LABS: HCO3 ABG 10 mmol/L (22-26); Oxygen Saturation ABG 97 % (95-100); PCO2 ABG 28.9 mmHg (35-45); PO2 ABG 116 mmHg (80-100); TCO2 ABG 10 mmol/L (21-31); pH ABG 7.13 (7.35-7.45)
[2021-09-30 18:06] LABS: Fractionated Inspired Oxygen 24
--- NOTE | 2021-09-30 18:08 | DI.RAD.S_ITS ---
PROCEDURE: XR CHEST 1V INDICATIONS: central line placement TECHNIQUE: One view of the chest was acquired. COMPARISON: Merged With [facility], CR, XR CHEST 1V, 09/30/2021, 16:12. FINDINGS: Surgical changes and devices: Central venous catheter projects to the mid SVC via a right IJ approach. Lungs and pleura: Lungs are clear. No pleural effusions or pneumothorax. Mediastinum: Mediastinal contours appear normal. Heart size is normal. Bones and chest wall: No suspicious bony lesions. Overlying soft tissues appear unremarkable. IMPRESSION: Tip of central venous catheter projects over the mid SVC. Dictated by: Alyssa Britt MD, PhD on 09/30/2021 at 18:25 Approved by: Alyssa Britt MD, PhD on 09/30/2021 at 18:26
[2021-09-30 18:13] LABS: Reflexed Lactate in 2 Hours Y
[2021-09-30] MEDS: MORPHINE 4 MG/ML INJ IV (18:30)
[2021-09-30 18:46] LABS: Lactate 2HR (Lactic Acid Rflx) 2.8 mmol/L (0.7-2.1)
[2021-09-30] MEDS: LACTATED RINGERS 1,000 ML 1000 ML IV (18:57)
[2021-09-30] MEDS: POTASSIUM CHLORIDE IN WATER 10 MEQ/100 ML PIGGYBACK 100 MEQ IV (19:06)
[2021-09-30] MEDS: INSULIN DRIP PREMIX 100 UNIT/100 ML PLAST..BAG 6 UNIT IV (19:18)
--- NOTE | 2021-09-30 19:59 | SUR.OPER ---
Supine on padded OR bed, head on pillow, arms secured on padded arm boards at <90 degrees abduction, legs uncrossed, safety belt at thigh, tape over blanket over lower legs.
--- NOTE | 2021-09-30 20:13 | PM.HP.1 ---
History of Present Illness History of Present Illness Date Patient Seen: 09/30/21 Time Patient Seen: 19:50 Chief complaint: 2 days down on floor Narrative: This is a 66-year-old known diabetic who was found down after not having been seen for several days. He was noted to have a severe right hand infection with a necrotic right index finger. He was brought to the emergency room hypotensive, hypothermic and in critical condition. X-rays showed evidence of substantial gas in his right upper extremity soft tissues. There was also severe destruction of the index finger. He has a history of necrotizing fasciitis in the right upper extremity in the past. He accidentally burned his right arm several weeks ago but thought it was healing. He normally takes oral diabetic medications. His mom and dad are at the bedside. His mom says she usually sees him every day but had not seen him for several days. Patient History Family & Social History Safety & Behavioral: Feels Safe in Current Unwilling to Answer Environment Been Physically Hurt or Unwilling to Answer Threatened By a Person Meds Home Medications and Allergies Home Medications Medication Instructions Recorded Confirmed Type albuterol sulfate 90 mcg/actuation 2 puff INH Q4HP PRN #0 05/16/17 09/30/21 History aerosol inhaler (Proventil HFA) gabapentin 300 mg capsule 300 mg PO TID #0 05/16/17 09/30/21 History (Neurontin) glimepiride 4 mg tablet (Amaryl) 4 mg PO QDAY #0 05/16/17 09/30/21 History metformin 1,000 mg tablet 1,000 mg PO BIDCC #0 05/16/17 09/30/21 History promethazine 25 mg tablet 25 mg PO HS #0 05/16/17 09/30/21 History atorvastatin 10 mg tablet 10 mg PO DAILY 09/30/21 09/30/21 History insulin glargine 100 unit/mL (3 See Rx Instructions .ROUTE .COMPLEX 09/30/21 09/30/21 History mL) subcutaneous pen (Lantus Solostar U-100 Insulin) oxycodone 10 mg tablet 10 mg PO DAILY PRN 09/30/21 09/30/21 History venlafaxine 75 mg capsule,extended 75 mg PO DAILY 09/30/21 09/30/21 History release 24 hr Allergies Allergy/AdvReac Type Severity Reaction Status Date / Time No Known Drug Allergies Allergy Verified 09/30/21 16:02 Review of Systems Review of Systems Narrative: Patient is generally confused, uncertain whether he has had fevers or chills, is uncertain when he last had any medications for diabetes, he does note severe right arm pain. Exam Vital Signs (past 8 hours): - 09/30/21 15:47 09/30/21 15:49 09/30/21 15:56 Temperature 87.8 F L 88.3 F L Pulse Rate 117 H 118 H 113 H Respiratory Rate 28 H 26 H 28 H Blood Pressure 72/47 L 72/47 L Pulse Oximetry 95 94 99 09/30/21 16:00 09/30/21 16:06 09/30/21 16:11 Temperature 88.5 F L 88.7 F L 88.7 F L Pulse Rate 120 H 120 H 119 H Respiratory Rate 28 H 28 H 28 H Blood Pressure 71/44 L 71/54 L Pulse Oximetry 99 99 94 09/30/21 16:15 09/30/21 16:20 09/30/21 16:25 Temperature 88.7 F L 88.7 F L 88.7 F L Pulse Rate 117 H 123 H 110 H Respiratory Rate 28 H 27 H 26 H Blood Pressure 72/48 L 70/51 L 64/49 L Pulse Oximetry 99 99 100 09/30/21 16:30 09/30/21 16:35 09/30/21 16:40 Temperature 88.9 F L 88.9 F L 89.2 F L Pulse Rate 119 H 118 H 125 H Respiratory Rate 27 H 22 24 Blood Pressure 73/35 L 63/44 L Pulse Oximetry 97 97 98 09/30/21 16:45 09/30/21 16:50 09/30/21 16:52 Temperature 89.1 F L 89.2 F L 89.2 F L Pulse Rate 114 H 118 H 120 H Respiratory Rate 21 22 26 H Blood Pressure 69/53 L 66/45 L 61/46 L Pulse Oximetry 98 96 95 09/30/21 16:55 09/30/21 16:56 09/30/21 16:57 Temperature 89.2 F L 89.2 F L 89.4 F L Pulse Rate 118 H 120 H 117 H Respiratory Rate 20 23 22 Blood Pressure 70/51 L 84/52 L Pulse Oximetry 93 93 96 09/30/21 17:00 09/30/21 17:03 09/30/21 17:05 Temperature 89.6 F L 89.4 F L 89.6 F L Pulse Rate 116 H 121 H 117 H Respiratory Rate 21 25 H 22 Blood Pressure 74/51 L Pulse Oximetry 98 98 95 09/30/21 17:06 09/30/21 17:09 09/30/21 17:10 Temperature 89.6 F L 89.8 F L 90.1 F L Pulse Rate 118 H 118 H 115 H Respiratory Rate 21 22 22 Blood Pressure 71/51 L 69/52 L Pulse Oximetry 82 L 87 L 82 L 09/30/21 17:12 09/30/21 17:15 09/30/21 17:18 Temperature 89.8 F L 90.0 F L 90.1 F L Pulse Rate 118 H 113 H 114 H Respiratory Rate 26 H 20 21 Blood Pressure 72/52 L 73/55 L 87/52 L Pulse Oximetry 98 98 97 09/30/21 17:20 09/30/21 17:21 09/30/21 17:24 Temperature 90.3 F L 90.5 F L 90.3 F L Pulse Rate 120 H 123 H 122 H Respiratory Rate 18 22 24 Blood Pressure 78/53 L 73/51 L Pulse Oximetry 97 95 98 09/30/21 17:25 09/30/21 17:27 09/30/21 17:30 Temperature 90.7 F L 90.5 F L 90.7 F L Pulse Rate 122 H 120 H 121 H Respiratory Rate 14 22 21 Blood Pressure 90/67 119/73 Pulse Oximetry 98 97 99 09/30/21 17:33 09/30/21 17:35 09/30/21 17:36 Temperature 90.9 F L 91.0 F L 91.0 F L Pulse Rate 123 H 127 H 91 H Respiratory Rate 22 21 21 Blood Pressure 134/75 129/70 Pulse Oximetry 99 98 98 09/30/21 17:39 09/30/21 17:40 09/30/21 17:42 Temperature 91.2 F L 91.4 F L 91.6 F L Pulse Rate 130 H 125 H 133 H Respiratory Rate 21 21 21 Blood Pressure 123/73 126/86 Pulse Oximetry 98 98 99 09/30/21 17:45 09/30/21 17:48 09/30/21 17:50 Temperature 92.3 F L 92.1 F L 92.1 F L Pulse Rate 132 H 132 H 134 H Respiratory Rate 18 20 20 Blood Pressure 119/80 124/77 Pulse Oximetry 97 97 98 09/30/21 17:51 09/30/21 17:54 09/30/21 17:55 Temperature 92.3 F L 92.5 F L 92.5 F L Pulse Rate 123 H 130 H 129 H Respiratory Rate 19 17 21 Blood Pressure 124/76 130/77 Pulse Oximetry 98 89 L 89 L 09/30/21 17:57 09/30/21 18:00 09/30/21 18:05 Temperature 92.8 F L 92.8 F L 93.2 F L Pulse Rate 130 H 131 H 134 H Respiratory Rate 19 21 22 Blood Pressure 120/82 120/78 Pulse Oximetry 97 98 96 09/30/21 18:07 09/30/21 18:10 09/30/21 18:15 Temperature 93.4 F L 93.6 F L 93.9 F L Pulse Rate 132 H 131 H 128 H Respiratory Rate 23 21 20 Blood Pressure 124/68 132/67 Pulse Oximetry 74 L 97 98 09/30/21 18:20 09/30/21 18:25 09/30/21 18:30 Temperature 94.1 F L 94.5 F L 94.6 F L Pulse Rate 133 H 135 H 139 H Respiratory Rate 22 21 20 Blood Pressure 106/61 Pulse Oximetry 98 100 91 09/30/21 18:35 09/30/21 18:50 09/30/21 18:51 Temperature 95.0 F L Pulse Rate 134 H 99 H 98 H Respiratory Rate 23 21 20 Blood Pressure 85/54 L Pulse Oximetry 94 09/30/21 18:52 09/30/21 18:55 09/30/21 19:00 Temperature 95.7 F L 95.9 F L 96.3 F L Pulse Rate 98 H 98 H 99 H Respiratory Rate 19 21 22 Blood Pressure 89/56 L Pulse Oximetry 93 95 09/30/21 19:01 09/30/21 19:05 09/30/21 19:10 Temperature 96.3 F L 96.4 F L 96.6 F L Pulse Rate 100 H 98 H 97 H Respiratory Rate 21 21 20 Blood Pressure 79/51 L Pulse Oximetry 96 95 98 09/30/21 19:15 09/30/21 19:20 09/30/21 19:25 Temperature 96.8 F L 97.0 F L 97.2 F L Pulse Rate 97 H 97 H 98 H Respiratory Rate 20 21 22 Blood Pressure 94/64 Pulse Oximetry 98 98 96 Oxygen Delivery Method Nasal Cannula Oxygen Flow Rate 1 Narrative Exam Narrative: He appears critically ill, he is confused but does answer some questions somewhat disheveled, neck is supple, cor is tachycardic without significant murmur, lungs show slight decreased breath sounds abdomen is soft and benign examination of the right upper extremity shows crepitus on the dorsum of the right hand a healed dorsal incision a completely necrotic right index finger there is obvious fluctuance in the hand especially in the 1st web space and fairly severe pain with any range of motion the erythema and fluctuance extends up to the mid forearm, there is some capillary refill distally especially in the ulnar digits, there is necrotic appearing tissue over the base of the thumb with marked fluctuance in the thumb and web space Objective Labs Result Diagrams: 09/30/21 21:35 09/30/21 21:35 Labs: Laboratory Results - last 24 hr 09/30/21 09/30/21 09/30/21 15:52 15:54 15:54 WBC RBC Hgb Hct MCV MCH MCHC RDW Plt Count Neut % (Auto) Lymph % (Auto) [place] % (Auto) Eos % (Auto) Baso % (Auto) Lymph # (Auto) [place] # (Auto) Baso # (Auto) Total Counted Seg Neutrophils % Band Neutrophils % Lymphocytes % (Manual) Monocytes % (Manual) Metamyelocytes % Neutrophils # (Manual) RBC Morphology Anisocytosis Valdemar Cells PT INR APTT ABG pH ABG pCO2 ABG pO2 ABG HCO3 ABG Total CO2 ABG O2 Saturation ABG Base Excess FiO2 Sodium Potassium Chloride Carbon Dioxide BUN Creatinine Estimated GFR BUN/Creatinine Ratio Glucose Lactate Calcium Total Bilirubin AST ALT Alkaline Phosphatase Total Creatine Kinase CK-MB (CK-2) CK-MB (CK-2) Rel Index Troponin I NT-Pro-B Natriuret Pep Total Protein Albumin Globulin Albumin/Globulin Ratio Procalcitonin Urine Color Yellow Urine Appearance Clear Urine pH 6.0 Ur Specific Craig 1.010 Urine Protein 1+ H Urine Glucose (UA) 3+ H Urine Ketones 2+ H Urine Occult Blood 2+ H Urine Nitrate Negative Urine Bilirubin 2+ H Ur Bilirubin Confirm Positive H Urine Urobilinogen 0.2 Ur Leukocyte Esterase Negative Urine RBC None seen Urine WBC 5-10/hpf H Amorphous Sediment 1+ Urine Bacteria Few (2-10) H Ur Culture Indicated? Specimen cultured U Opiates 300ng/mL cut Negative Ur Oxycodone Screen Positive H Urine Methadone Screen Negative Ur Barbiturates Screen Negative U Tricyclic Antidepress Negative Ur Phencyclidine Scrn Negative Ur Amphetamines Screen Negative U Methamphetamines Scrn Negative Ur MDMA Scrn (Ecstasy) Negative U Benzodiazepines Scrn Negative Urine Cocaine Screen Negative U Marijuana (THC) Screen Negative Ethyl Alcohol Ketones SARS-CoV-2 (PCR) Negative 09/30/21 09/30/21 09/30/21 16:00 16:00 16:00 WBC 21.8 H RBC 5.86 Hgb 17.6 H Hct 54.8 H MCV 93.6 MCH 30.1 MCHC 32.2 RDW 14.4 Plt Count 319 Neut % (Auto) Not Reportable Lymph % (Auto) Not Reportable [place] % (Auto) Not Reportable Eos % (Auto) Not Reportable Baso % (Auto) Not Reportable Lymph # (Auto) Not Reportable [place] # (Auto) Not Reportable Baso # (Auto) Not Reportable Total Counted 100 Seg Neutrophils % 78.0 H Band Neutrophils % 11.0 H Lymphocytes % (Manual) 1.0 L Monocytes % (Manual) 8.0 Metamyelocytes % 2.0 H Neutrophils # (Manual) 41784 H RBC Morphology See below Anisocytosis 1+ H Valdemar Cells 2+ H PT 13.1 H INR 1.2 APTT ABG pH ABG pCO2 ABG pO2 ABG HCO3 ABG Total CO2 ABG O2 Saturation ABG Base Excess FiO2 Sodium 130 L Potassium 3.4 Chloride 92 L Carbon Dioxide 11 L BUN 44 H Creatinine 2.18 H Estimated GFR 30.6 L BUN/Creatinine Ratio 20.2 Glucose 607 H* Lactate Calcium 10.0 Total Bilirubin 0.9 AST 78 H ALT 28 Alkaline Phosphatase 135 H Total Creatine Kinase 3262 H CK-MB (CK-2) 31.90 H CK-MB (CK-2) Rel Index 1.0 L Troponin I 0.022 NT-Pro-B Natriuret Pep 3580 H Total Protein 7.3 Albumin 3.6 Globulin 3.7 Albumin/Globulin Ratio 1.0 Procalcitonin 30.6 H Urine Color Urine Appearance Urine pH Ur Specific Craig Urine Protein Urine Glucose (UA) Urine Ketones Urine Occult Blood Urine Nitrate Urine Bilirubin Ur Bilirubin Confirm Urine Urobilinogen Ur Leukocyte Esterase Urine RBC Urine WBC Amorphous Sediment Urine Bacteria Ur Culture Indicated? U Opiates 300ng/mL cut Ur Oxycodone Screen Urine Methadone Screen Ur Barbiturates Screen U Tricyclic Antidepress Ur Phencyclidine Scrn Ur Amphetamines Screen U Methamphetamines Scrn Ur MDMA Scrn (Ecstasy) U Benzodiazepines Scrn Urine Cocaine Screen U Marijuana (THC) Screen Ethyl Alcohol Ketones SARS-CoV-2 (PCR) 09/30/21 09/30/21 09/30/21 16:00 16:00 16:00 WBC RBC Hgb Hct MCV MCH MCHC RDW Plt Count Neut % (Auto) Lymph % (Auto) [place] % (Auto) Eos % (Auto) Baso % (Auto) Lymph # (Auto) [place] # (Auto) Baso # (Auto) Total Counted Seg Neutrophils % Band Neutrophils % Lymphocytes % (Manual) Monocytes % (Manual) Metamyelocytes % Neutrophils # (Manual) RBC Morphology Anisocytosis Calhan Cells PT INR APTT 37 H ABG pH ABG pCO2 ABG pO2 ABG HCO3 ABG Total CO2 ABG O2 Saturation ABG Base Excess FiO2 Sodium Potassium Chloride Carbon Dioxide BUN Creatinine Estimated GFR BUN/Creatinine Ratio Glucose Lactate 4.0 H Calcium Total Bilirubin AST ALT Alkaline Phosphatase Total Creatine Kinase CK-MB (CK-2) CK-MB (CK-2) Rel Index Troponin I NT-Pro-B Natriuret Pep Total Protein Albumin Globulin Albumin/Globulin Ratio Procalcitonin Urine Color Urine Appearance Urine pH Ur Specific Craig Urine Protein Urine Glucose (UA) Urine Ketones Urine Occult Blood Urine Nitrate Urine Bilirubin Ur Bilirubin Confirm Urine Urobilinogen Ur Leukocyte Esterase Urine RBC Urine WBC Amorphous Sediment Urine Bacteria Ur Culture Indicated? U Opiates 300ng/mL cut Ur Oxycodone Screen Urine Methadone Screen Ur Barbiturates Screen U Tricyclic Antidepress Ur Phencyclidine Scrn Ur Amphetamines Screen U Methamphetamines Scrn Ur MDMA Scrn (Ecstasy) U Benzodiazepines Scrn Urine Cocaine Screen U Marijuana (THC) Screen Ethyl Alcohol Ketones 8.59 H SARS-CoV-2 (PCR) 09/30/21 09/30/21 09/30/21 16:00 16:20 16:25 WBC RBC Hgb Hct MCV MCH MCHC RDW Plt Count Neut % (Auto) Lymph % (Auto) [place] % (Auto) Eos % (Auto) Baso % (Auto) Lymph # (Auto) [place] # (Auto) Baso # (Auto) Total Counted Seg Neutrophils % Band Neutrophils % Lymphocytes % (Manual) Monocytes % (Manual) Metamyelocytes % Neutrophils # (Manual) RBC Morphology Anisocytosis Valdemar Cells PT INR APTT ABG pH 7.13 L* ABG pCO2 28.9 L ABG pO2 116 H ABG HCO3 10 L ABG Total CO2 10 L ABG O2 Saturation 97 ABG Base Excess -20.0 L FiO2 24 Sodium Potassium Chloride Carbon Dioxide BUN Creatinine Estimated GFR BUN/Creatinine Ratio Glucose Lactate 2.8 H Calcium Total Bilirubin AST ALT Alkaline Phosphatase Total Creatine Kinase CK-MB (CK-2) CK-MB (CK-2) Rel Index Troponin I NT-Pro-B Natriuret Pep Total Protein Albumin Globulin Albumin/Globulin Ratio Procalcitonin Urine Color Urine Appearance Urine pH Ur Specific Craig Urine Protein Urine Glucose (UA) Urine Ketones Urine Occult Blood Urine Nitrate Urine Bilirubin Ur Bilirubin Confirm Urine Urobilinogen Ur Leukocyte Esterase Urine RBC Urine WBC Amorphous Sediment Urine Bacteria Ur Culture Indicated? U Opiates 300ng/mL cut Ur Oxycodone Screen Urine Methadone Screen Ur Barbiturates Screen U Tricyclic Antidepress Ur Phencyclidine Scrn Ur Amphetamines Screen U Methamphetamines Scrn Ur MDMA Scrn (Ecstasy) U Benzodiazepines Scrn Urine Cocaine Screen U Marijuana (THC) Screen Ethyl Alcohol < 10 Ketones SARS-CoV-2 (PCR) 09/30/21 19:35 WBC RBC Hgb Hct MCV MCH MCHC RDW Plt Count Neut % (Auto) Lymph % (Auto) [place] % (Auto) Eos % (Auto) Baso % (Auto) Lymph # (Auto) [place] # (Auto) Baso # (Auto) Total Counted Seg Neutrophils % Band Neutrophils % Lymphocytes % (Manual) Monocytes % (Manual) Metamyelocytes % Neutrophils # (Manual) RBC Morphology Anisocytosis Calhan Cells PT INR APTT ABG pH ABG pCO2 ABG pO2 ABG HCO3 ABG Total CO2 ABG O2 Saturation ABG Base Excess FiO2 Sodium 126 L Potassium 3.9 Chloride 105 Carbon Dioxide < 5 L* BUN 5 L Creatinine < 0.15 L Estimated GFR > 60.0 BUN/Creatinine Ratio 33.3 H Glucose 68 L D Lactate Calcium 5.9 L* Total Bilirubin AST ALT Alkaline Phosphatase Total Creatine Kinase CK-MB (CK-2) CK-MB (CK-2) Rel Index Troponin I NT-Pro-B Natriuret Pep Total Protein Albumin Globulin Albumin/Globulin Ratio Procalcitonin Urine Color Urine Appearance Urine pH Ur Specific Craig Urine Protein Urine Glucose (UA) Urine Ketones Urine Occult Blood Urine Nitrate Urine Bilirubin Ur Bilirubin Confirm Urine Urobilinogen Ur Leukocyte Esterase Urine RBC Urine WBC Amorphous Sediment Urine Bacteria Ur Culture Indicated? U Opiates 300ng/mL cut Ur Oxycodone Screen Urine Methadone Screen Ur Barbiturates Screen U Tricyclic Antidepress Ur Phencyclidine Scrn Ur Amphetamines Screen U Methamphetamines Scrn Ur MDMA Scrn (Ecstasy) U Benzodiazepines Scrn Urine Cocaine Screen U Marijuana (THC) Screen Ethyl Alcohol Ketones SARS-CoV-2 (PCR) Assessment & Plan Assessment and plan (1) Sepsis: Status: Acute (2) Necrotizing fasciitis of hand: Status: Acute (3) DKA (diabetic ketoacidosis): Status: Acute (4) VINCENT (acute kidney injury): Status: Acute (5) Necrosis of finger: Status: Acute Plan He is critically ill in septic shock with a necrotic right finger and severe life-threatening infection in his right hand. He has evidence of gas in his subcutaneous tissues at least up to the mid forearm. He clearly needs an amputation of his index finger but may need a below-elbow amputation. It has been getting progressively worse well he has been in the emergency room. He is currently on pressors and is clinically worsening. We contacted [facility] hand service and they said that they would take the patient in transport but they would prefer if we do initial debridement here. The plan is for amputation as needed and irrigation and debridement. Critical life-threatening nature of the procedure discussed with the patient and his parents who are at bedside. I explained that this is certainly a limb threatening and a life-threatening infection. He is currently in diabetic ketoacidosis and septic shock. Because of the overwhelming infection, he will be taken to the operating room on an emergent basis. Time Spent With Patient Critical Care time: I spent a total of [] minutes of critical care time on this patient's care today; this time is exclusive of procedural time.
[2021-09-30 22:01] LABS: Hematocrit 44.2 % (41-53); Hemoglobin 14.7 g/dL (13.5-17.5); Mean Corpuscular HGB Conc 33.3 % (30-36); Mean Corpuscular Hemoglobin 30.4 PG (26-34); Mean Corpuscular Volume 91.2 fL (80-100); Platelet Count 331 X10^3/uL (150-400); Red Blood Cell Count 4.85 X10^6/uL (4.5-5.9); Red Cell Distribution Width 14.4 % (11.6-14.8)
[2021-09-30 22:03] LABS: Add Manual Diff / Slide Review YES; Alanine Aminotransferase 25 IU/L (<50); Albumin 2.5 g/dL (3.5-5.0); Albumin Globulin Ratio 0.8 (1.0-2.8); Alkaline Phosphatase 97 U/L (38-126); Aspartate Aminotransferase 50 IU/L (17-59); BUN Creatinine Ratio 30.9 (6-22); Bilirubin Total 0.6 mg/dL (0.2-1.3); Blood Urea Nitrogen 43 mg/dL (9-20); Calcium 9.2 mg/dL (8.4-10.2); Carbon Dioxide 17 mmol/L (22-32); Chloride 98 mmol/L (98-107); Estimated Glomerular Filt Rate 51.4 mL/min (>60); Globulin 3.1 g/dL (1.7-4.1); Glucose 378 mg/dL (80-110); HEMOLYSIS < 15 (0-50); Potassium 3.1 mmol/L (3.4-5.1); Sodium 130 mmol/L (137-145); Total Protein 5.6 g/dL (6.3-8.2)
[2021-09-30 22:16] LABS: Neutrophils Absolute Manual 18400 /uL (3000-5900); Total Cells Counted 100
[2021-09-30 22:18] LABS: RBC Morphology Normal Morphology
--- NOTE | 2021-09-30 22:29 | P.OP_ITS ---
Operative Date/Time/Diagnoses Date of procedure: 09/30/21 Time of procedure: 21:00 Pre-op diagnosis: Necrotizing fasciitis right upper extremity with a grossly necrotic index finger Post-op diagnosis: same Procedure & Clinicians Procedure: 1. amputation right index finger at the MCP joint, 2. extensive irrigation and debridement with about a 25 cm dorsal incision on the dorsum of the right hand with excisional debridement of grossly necrotic and grossly infected and fascial tissue 3. additional debridement of the right thumb and 1st web space dorsal interosseous muscle Same procedure as scheduled: Yes Indications: This is a critically ill 66-year-old diabetic was grossly unstable in septic shock and diabetic ketoacidosis with a necrotic right index finger and necrotizing fasciitis of his right forearm brought emergently to the operating room for amputation and irrigation and debridement is needed. This is felt to be both a limb-threatening and life-threatening overwhelming septic problem. Surgeon: Cheli Reyna Anesthesia Type: General Operative Notes Findings: Completely necrotic right index finger, evidence of necrotizing fasciitis with fascia and some gross purulence along the extensor tendon sheath into the distal 3rd of the forearm, grossly necrotic fascia on the dorsum of the hand and along the thumb with some necrotic tissue of the 1st dorsal interosseous, some capillary reef you fell and no gross purulence in the small finger ring finger and middle finger Closure Type: not applicable Specimen(s): other (Multiple cultures) Applied: drain(s) (Wounds packed with iodoform gauze) Estimated Blood Loss (mL): 100 Blood products transfused: none Procedure in detail: Patient was brought to the operating room. Time-out was performed. Was given IV antibiotics in the emergency room. His right upper extremity was prepped with Betadine. A tourniquet was applied but not elevated. He was prepped and draped sterilely. A dorsal skin incision was made the patient had a previous skin incision the incision was run about 25 cm from hand up to the mid forearm to just below the elbow. Dissection was carried out through skin and subcutaneous tissues. There was gross purulence and necrotic fascia especially throughout the dorsum of the hand. An excisional debridement was performed removing grossly necrotic tissue. Did an amputation of the index finger through the MCP joint. I then debrided additional skin and subcutaneous tissues more proximally the region of the index finger removing anything that looked grossly necrotic. Secondary incision was made over the dorsum of the thumb and extensor tendons of the thumb there was a pus pocket in that area and some necrotic fascia directly over the thumb. Use combination of hemostats and a rongeur and explored other compartments including the 1st web space there was grossly necrotic muscle of the 1st dorsal interosseous which was debrided. Additionally elevated the flaps to look along the dorsum of the the hand. Did not appear to be additional severe necrotic tissue on the more ulnar side of the hand including the ring and small finger. More Pomalyst palmarly on the ulnar side of the hand did not appear in the hypothenar eminence did not appear to be grossly necrotic tissue there was some more the in the 1st webspace and this was meticulously explored and debrided. It was copiously irrigated with normal saline. Proximally the incision was run on the dorsum of the arm up to the mid forearm area. There was some grossly purulent material noted in the dorsal extensor compartment. The compartment was released and all purulent material was meticulously drained. There was not substantial necrotic fascia in the forearm but there was fairly extensive necrotic fascia distally in the hand. The volar surface of the arm was fairly benign I did not open the volar surface of his arm. Cultures were taken and sent to the lab for stat Gram stain culture and sensitivity. The wounds were meticulously irrigated with normal saline. A carefully scrubbed meticulously irrigated the arm trying to get it as clean as pot a possible and debride anything that looked necrotic. The wound was then packed with iodoform gauze. There was fairly mild bleeding. The residual skin flaps did appear to be viable and not specifically necrotic. The wound was dressed sterilely with ABDs Kerlix and a bias cut stockinette. Complications: none Post-operative Condition: critical Disposition: PACU (Currently intubated awaiting acceptance for transfer at [place]) Plan for aftercare: IV antibiotics, ICU care, transferred to [facility]. I anticipate he will need a dressing change and possible repeat irrigation and debridement within 12-24 hours. He may require a below-elbow amputation or even more proximal amputation. He is considered critical at this point.
--- NOTE | 2021-09-30 22:34 | DI.RAD.S_ITS ---
PROCEDURE: XR CHEST 1V INDICATIONS: ET tube placement TECHNIQUE: One view of the chest was acquired. COMPARISON: [facility], CR, XR CHEST 1V, 09/30/2021, 18:08. [facility], CR, XR CHEST 1V, 09/30/2021, 16:12. FINDINGS: Surgical changes and devices: Endotracheal tube in normal position. Right-sided internal jugular central line positioning normal. Lungs and pleura: Lungs are clear. No pleural effusions or pneumothorax. Mediastinum: Mediastinal contours appear normal. Heart size is normal. Bones and chest wall: No suspicious bony lesions. Overlying soft tissues appear unremarkable. IMPRESSION: Endotracheal tube positioning normal, central line normal also. Dictated by: Jef Brown M.D. on 09/30/2021 at 23:00 Approved by: Jef Brown M.D. on 09/30/2021 at 23:01
--- NOTE | 2021-09-30 22:37 | SUR.PHASEI ---
Pt to PACU with ET tube in place with Dr Hatch. Placed on Ventilator by RT. Propofal drip at 50/hr. Levophed at 10mcg/min and Insulin at 10unit per hour. Left arm art line in and Central line.
[2021-09-30] MEDS: HYDROMORPHONE 2 MG INJ IV ×2 (23:04→23:26)
[2021-09-30] MEDS: CLINDAMYCIN 600 MG/50 ML PIGGYBACK 50 MG IV ×2 (23:07→23:15)
--- NOTE | 2021-09-30 23:25 | SUR.PHASEI ---
Insulin drip increased by Dr Hatch to 12 units and bolus of 5units given
[2021-09-30 23:30] LABS: Fractionated Inspired Oxygen 44; HCO3 ABG 17 mmol/L (22-26); Oxygen Saturation ABG 99 % (95-100); PCO2 ABG 50.5 mmHg (35-45); PO2 ABG 150 mmHg (80-100); TCO2 ABG 19 mmol/L (21-31); pH ABG 7.15 (7.35-7.45)
--- NOTE | 2021-09-30 23:40 | SUR.PHASEI ---
[id number] [facility] here for report and pickup. SBAR report to Jevon PAZ
[2021-09-30 23:49] LABS: pH ABG 7.23 (7.35-7.45)
[2021-09-30 23:50] LABS: Fractionated Inspired Oxygen 50; HCO3 ABG 21 mmol/L (22-26); Oxygen Saturation ABG 96 % (95-100); PO2 ABG 95 mmHg (80-100); TCO2 ABG 22 mmol/L (21-31)
[2021-10-01] MEDS: HYDROMORPHONE 2 MG INJ IV (00:08)
--- NOTE | 2021-10-01 00:10 | SUR.PHASEI ---
Pt medicated with dilaudid prior to transfer to [facility] and flight to [facility]
--- NOTE | 2021-10-01 00:34 | SUR.PHASEI ---
0015 Patient transferred to [facility] monitor at 2340. Pt departed PACU with flight team at 0015.
--- NOTE | 2021-10-13 17:27 | PC.NURSE ---
Late Entry; Clindamycin infusion initiated 09/30 at 23:07 still infusing at time of transfer via [facility] [place] 23:40.
== END 2021-10-01 00:15 | disposition home or self-care (01) ==
LOC: ED 20:25 → AC 20:29
PROVIDERS: Anesthesiology; Admitting Provider Orthopaedic Surgery; Emergency Provider Emergency Medicine; PCP Internal Medicine; Referring Provider Emergency Medicine; Visit Provider Orthopaedic Surgery
PROC: (CPT 11043; principal; 2021-09-30 19:30)
DX: R65.21 Severe sepsis with septic shock (principal); A41.01 Sepsis due to Methicillin susceptible Staphylococcus aureus; M72.6 Necrotizing fasciitis; I96 Gangrene, not elsewhere classified; E11.10 Type 2 diabetes mellitus with ketoacidosis without coma; N17.9 Acute kidney failure, unspecified; I95.89 Other hypotension; R41.82 Altered mental status, unspecified; Z79.84 Long term (current) use of oral hypoglycemic drugs; Z20.822 Contact with and (suspected) exposure to COVID-19
CPT/HCPCS: 11043; 11046; 26951; 36415; 36600; 70450; 71045; 72125; 73130; 80053; 80305; 80320; 81001; 82009; 82550; 82553; 82805; 82962; 83605; 83880; 84145; 84484; 85007; 85025; 85610; 85730; 87040; 87070; 87075; 87076; 87077; 87086; 87147; 87186; 87205; 87635; 93005; 94002; 94799; 96365; 96366; 96367; 96368; 96375; 99285; 99291; 99292; C9803; G0378; J1170; J2270; J2405; J2543; J2704; J3010